=== PATIENT | female | born 1990 | race Caucasian/White ===

== ENCOUNTER → 2017-02-17 | Emergency (ER) | payer SELFPAY ==
[~2017-02-17] VITALS: Ht 149.9 cm; Wt 63.5 kg
[2017-02-17 18:03] VITALS: BP_SYST 138
== END | disposition still patient (30) ==
LOC: SED 17:58
DX: Z76.0 Encounter for issue of repeat prescription (principal); E10.8 Type 1 diabetes mellitus with unspecified complications; R03.0 Elevated blood-pressure reading, without diagnosis of hypertension
CPT/HCPCS: 99283

== ENCOUNTER 2018-09-12 09:52 | Emergency (ER) | payer MEDICAID, OTHER ==
[~2018-09-12] VITALS: Ht 149.9 cm; Wt 68.0 kg
[2018-09-12 09:55] VITALS: BP_SYST 105
--- NOTE | 2018-09-12 10:00 | NUR ---
PT came into ER due to ALOC. PT adivsed that she took insulin without eating and was hypoglycemic. Pre arrival blood glucose was 60. Blood glucose at arrival was 58. PT was given juice. PT laying on gurney [id number] and presenting no signs of acute distress.
[2018-09-12] MEDS ORDERED: DEXTROSE 50% JECT 50 ML DISP.SYRIN ONE (10:10)
[2018-09-12] MEDS ORDERED: NACL 0.9% 1,000 ML IV ONE (10:18)
--- NOTE | 2018-09-12 10:21 | NUR ---
ER at bedside examining patient.
[2018-09-12] MEDS ORDERED: DEXTROSE 50% JECT 50 ML DISP.SYRIN IVP ONE (10:30)
[2018-09-12 10:50] LABS: BASOPHILS % (AUTO) 0.4 % (0.0-2.0); EOSINOPHILS # (AUTO) 0.2 K/uL (0.0-0.4); EOSINOPHILS % (AUTO) 1.9 % (0.0-4.0); HEMATOCRIT 41.1 % (36-48); HEMOGLOBIN 13.1 g/dL (12.0-16.0); LYMPHOCYTES # (AUTO) 1.5 K/uL (1.0-5.5); LYMPHOCYTES % (AUTO) 12.9 % (20.5-51.5); MEAN CORPUSCULAR HEMOGLOBIN 28 pg (27-31); MEAN CORPUSCULAR HGB CONC 32 % (32-36); MEAN CORPUSCULAR VOLUME 88 fL (79.0-98.0); MONOCYTES # (AUTO) 0.5 K/uL (0.0-1.0); MONOCYTES % (AUTO) 4.6 % (1.7-9.3); NEUTROPHILS # (AUTO) 9.6 K/uL (1.8-7.7); NEUTROPHILS % (AUTO) 80.2 % (40.0-70.0); PLATELET COUNT (AUTO) 251 K/uL (130-430); RED BLOOD CELL COUNT(AUTO) 4.68 MIL/uL (4.2-6.2)
[2018-09-12 11:07] LABS: CALCIUM 9.2 mg/dL (8.4-11.0); CREATININE 0.76 mg/dL (0.55-1.30); POTASSIUM 3.9 mmol/L (3.5-5.1)
--- NOTE | 2018-09-12 11:15 | NUR ---
PT is at bedside with mother. PT is laying on the gurney comfortably. PT is not presenting any signs of acute distress.
[2018-09-12 11:25] LABS: ALBUMIN 3.5 g/dL (3.4-4.8); TOTAL BILIRUBIN 0.2 mg/dL (0.0-1.0)
--- NOTE | 2018-09-12 12:15 | NUR ---
PT is laying asleep on gurney with mother at bedside. PT is not presenting any signs of acute distress.
--- NOTE | 2018-09-12 13:00 | NUR ---
PT is awake speaking to her mother at bedside. PT vitals stable.
[2018-09-12 13:48] LABS: CALCIUM 8.4 mg/dL (8.4-11.0); CREATININE 0.77 mg/dL (0.55-1.30); POTASSIUM 3.9 mmol/L (3.5-5.1)
[2018-09-12 13:49] LABS: INR 0.9 (0.8-1.2); PROTHROMBIN TIME 9.2 SECS (9.5-12.5)
--- NOTE | 2018-09-12 14:00 | NUR ---
Patient is complaining of nausea, fingerstick of 299 noted. MD made aware.
[2018-09-12 14:45] VITALS: BP_SYST 100
== END 2018-09-12 14:45 | disposition home or self-care (01) ==
LOC: SED 09:52
DX: E10.649 Type 1 diabetes mellitus with hypoglycemia without coma (principal)
CPT/HCPCS: 36415; 71045; 80048; 80053; 82150; 82550; 82553; 82962; 83605; 83690; 84484; 85025; 85610; 85730; 87040; 96361; 96374; 99284; J7030

== ENCOUNTER 2018-10-04 06:46 | Emergency (ER) | payer MEDICAID ==
[~2018-10-04] VITALS: Ht 149.9 cm; Wt 77.1 kg
[2018-10-04 06:51] VITALS: BP_SYST 134
[2018-10-04 07:42] LABS: ALBUMIN 3.3 g/dL (3.4-4.8); CALCIUM 8.5 mg/dL (8.4-11.0); POTASSIUM 4.1 mmol/L (3.5-5.1); TOTAL BILIRUBIN 0.3 mg/dL (0.0-1.0)
[2018-10-04 08:35] VITALS: BP_SYST 104
== END 2018-10-04 08:35 | disposition home or self-care (01) ==
LOC: SED 06:46
DX: E10.649 Type 1 diabetes mellitus with hypoglycemia without coma (principal)
CPT/HCPCS: 36415; 80053; 99283

== ENCOUNTER 2019-08-02 14:19 | Emergency (ER) | payer MEDICAID ==
[~2019-08-02] VITALS: Ht 149.9 cm; Wt 72.6 kg
[2019-08-02 14:30] VITALS: BP_SYST 113
[2019-08-02] MEDS ORDERED: ONDANSETRON 4 MG ODT TAB PO ONE (14:45)
[2019-08-02 14:49] LABS: BASOPHILS # (AUTO) 0.1 K/uL (0.0-0.2); BASOPHILS % (AUTO) 1.1 % (0.0-2.0); EOSINOPHILS # (AUTO) 0.2 K/uL (0.0-0.4); EOSINOPHILS % (AUTO) 1.3 % (0.0-4.0); HEMATOCRIT 37.2 % (36-48); HEMOGLOBIN 12.3 g/dL (12.0-16.0); LYMPHOCYTES # (AUTO) 2.5 K/uL (1.0-5.5); LYMPHOCYTES % (AUTO) 21.4 % (20.5-51.5); MEAN CORPUSCULAR HEMOGLOBIN 30 pg (27-31); MEAN CORPUSCULAR HGB CONC 33 % (32-36); MEAN CORPUSCULAR VOLUME 91 fL (79.0-98.0); MONOCYTES # (AUTO) 0.4 K/uL (0.0-1.0); MONOCYTES % (AUTO) 3.1 % (1.7-9.3); NEUTROPHILS # (AUTO) 8.5 K/uL (1.8-7.7); NEUTROPHILS % (AUTO) 73.1 % (40.0-70.0); PLATELET COUNT (AUTO) 272 K/uL (130-430); RED BLOOD CELL COUNT(AUTO) 4.11 MIL/uL (4.2-6.2); RED CELL DISTRIBUTION WIDTH 13.9 % (9.0-15.0); WHITE BLOOD COUNT (AUTO) 11.7 K/uL (4.8-10.8)
[2019-08-02 15:17] LABS: CALCIUM 8.2 mg/dL (8.4-11.0); CREATININE 0.85 mg/dL (0.55-1.30); POTASSIUM 3.7 mmol/L (3.5-5.1)
[2019-08-02 15:30] LABS: ALBUMIN 3.3 g/dL (3.4-4.8); TOTAL BILIRUBIN 0.3 mg/dL (0.0-1.0)
[2019-08-02 15:34] LABS: BILIRUBIN,URINE NEGATIVE (NEGATIVE); BLOOD, URINE NEGATIVE (NEGATIVE); COLOR,URINE YELLOW (YELLOW); GLUCOSE,URINE NEGATIVE (NEGATIVE); KETONES,URINE NEGATIVE (NEGATIVE); LEUKOCYTE ESTERASE ,URINE TRACE (NEGATIVE); NITRITE, URINE NEGATIVE (NEGATIVE); PROTEIN URINE NEGATIVE (NEGATIVE); UROBILINOGEN,URINE 0.2 (0.2-1.0)
[2019-08-02 15:42] LABS: CLARITY/URINE HAZY (CLEAR)
[2019-08-02 16:08] LABS: BACTERIA,URINE FEW /HPF (None Seen); RBC,URINE NONE SEEN /HPF (0-3)
[2019-08-02 16:09] LABS: MUCUS,URINE None Seen /LPF (None Seen)
[2019-08-02 16:40] VITALS: BP_SYST 113
== END 2019-08-02 16:40 | disposition home or self-care (01) ==
LOC: SED 14:19
DX: K59.00 Constipation, unspecified (principal); R11.0 Nausea; R10.84 Generalized abdominal pain; E11.9 Type 2 diabetes mellitus without complications; Z79.4 Long term (current) use of insulin
CPT/HCPCS: 36415; 74018; 80053; 81000; 83690; 84702; 85025; 87086; 99284; Q0162